=== PATIENT | female | born 1965 | race Caucasian/White ===

== ENCOUNTER 2025-06-08 07:31 | Outpatient (AMB) | payer BC, SELFPAY ==
--- OUTSIDE RECORDS SUMMARY | 2025-06-08 07:35 | XMS_ITS | Patient Health Record ---
Author Organization [facility] Address [address] [facility] [place] [address] Care Team Providers Care Engineering Manager Electronics Name Role Phone Bridger Trevino MD Primary Care Provider Unavail able Chris Gaurav Unavailable [phone] Reason For Referral No Information Medications Medication SIG (Take, Route, Frequency, Duration) Notes Start Date End Date Status Walking Boot/Pneumatic As directed Wear Daily; Duration: Until further notice 06/19/2017 Active Lupron Depot (1-Month) Active Neurontin 300 MG 1 capsule Orally Once a day at night; Duration: 30 day(s) 08/21/2017 Active medroxyPROGESTERone Acetate 104 MG/0.65ML Subcutaneous Not-Taking Ibuprofen 800 MG 1 tablet Orally Three times a day; Duration: 30 day(s) PRN 06/20/2014 Not-Taking Compression Stockings 20-30mm Hg as directed 09/05/2014 Not-Taking Work Note . 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 .; Duration: . 08/18/2014 Not-Taking Physical Therapy 3-4x per week for 3-4 weeks 08/18/2014 Not-Taking Social History Tobacco Use: Social History Observation Description Date Details (start date - stop date) Never Smoker NA - NA Tobacco Use/Smoking Question Answer Notes Are you a: nonsmoker Additional Findings: Tobacco Non-User Current no n-smoker Alcohol Screen Question Answer Notes Did you have a drink contain ing alcohol in the past year? Yes How often did you have a dri nk containing alcohol in the past year? Monthly or less (1 point) How many drinks did you have on a typical day when you were drinking in the past year? 1 or 2 drinks (0 point) How often did you have 6 or more drinks on one occasion in the past year? Never (0 point) Points 1 Interpretation Negative Tobacco use other than smoking: Question Answer Notes Are you an other tobacco user? 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) Active confirmed Problem Localized, primary osteoarthritis of the ankle and/or foot (369521679) Primary osteoarthritis of left foot (M19.072) Active confirmed Plan Of Treatment Pending Test Test Name Order Date MRI : Foot, left 08/06/2017 X ray : Foot, right 2V 06/02/2014 X ray : Foot, right 2V 07/21/2014 X ray : Foot, right 2V 08/04/2014 X ray : Foot, right 2V 08/18/2014 X ray : Foot, right 2V 09/05/2014 X ray : Foot, right 2V 10/10/2014 X ray : Foot, right 2V 02/09/2015 Tc99 3 phase Bone Scan 07/09/2017 X ray : Foot, left 3V 07/09/2017 76816, J0702- Neuroma/Injection 07/23/19 18 Insurance Providers Payer Name Payer Address Payer Phone Subscriber Number Group Number Insured Name Patient Relationship to Insured Coverage Start Date Coverage End Date [facility] [address] [place] [address] [id number] Susie Jacobs Self - patient is the insured Medical (General) History Medical History History ICD Code hallux valgus edema Lumbago Degenerative arthritis of cervical spine Neck pain Shoulder pain cervical facet pain Pain in Limb Surgical History Surgery Date(Month/Year) Bun/R 07/13/2014 Hospitalization History Reason Date(Month/Year) Bunion right foot 07/13/14
--- OUTSIDE RECORDS SUMMARY | 2025-06-08 07:36 | XMS_ITS ---
[facility] Care Team Organization Name Specialty Phone Email Start Date End Da te [facility] Bridger Trevino Primary Care 05/06/2022 02/15/2024
--- OUTSIDE RECORDS SUMMARY | 2025-06-08 07:36 | XMS_ITS | Clinical Summary ---
Author [facility] Address [address] [place] [phone] Phone Care Team Providers Care Set Staff Fitter Name Role Phone Carlos Trevino MD Primary Care Provider [phone] Allergies No known active allergies Medications linaCLOtide (Linzess) 290 mcg capsule Take 1 capsule (290 mcg total) by mouth 1 (one) time each day. 30 each 11 09/19/2024 6 Active polyethylene glycol (PEG) 17 gram/dose oral powder 17 g 1 (one) time each day. Active Active Problems Problem Noted Date Diagnosed Date Lung nodule 2022 Overview (07/20/2024): [facility] 09/18. CT---small ground glass opacities Right and left Apices. Repeat 6 mo. 03/21. Improved. Repeat 1 yr? Injury of tendon of right hand 01/02/2020 Liver lesion 05/05/2019 Overview (07/20/2024): Likely simple cyst, CT 05/17. US ordered for further eval Colonic mass 05/05/2019 Overview (07/20/2024): CT 05/17. Polypoid Soft tissue mass at ileocecal valve. DDx stool vs benign vs malignant. GI referral. 05/17 Colonoscopy normal. Repeat 10 yrs Edema 09/08/2013 Degenerative arthritis of cervical spine 010 Neck pain 11/14/2009 Encounters Date Type Department Care Team Description 05/11/2025 Telephone Adult Medicine [address] [phone] Shiraz Espino PA 05/09/2025 10:30 AM EST Office Visit Adult [address] [phone] Shiraz Espino PA Right upper quadrant abdominal pain (Primary Dx) 05/09/2025 Telephone Adult [address] [phone] Shiraz Espino PA 04/18/2025 Results Follow-Up [address] [phone] Sony Bolivar RN 04/13/2025 3:25 PM EDT - 04/13/2025 11:59 PM EDT Hospital Encounter Radiology Department - [address] [phone] Encounter for screening mammogram for breast cancer Discharge Disposition: Home or Self Care from Last 3 Months Immunizations Immunization Administration Dates Next Due Influenza Quadrivalent, 0.5m l, preservative free (Fluarix; FluLaval; Fluzone) ages 6mo and older (Afluria) 3yo and older 05/06/2022,04/04/2020 Influenza Quadrivalent, with preservative (Fluzone; Afluria) 6mo and older 04/24/2020 Influenza trivalent, MDCK, 0 .5mL, preservative free (Flucelvax) 6mo and older 02/27/2024 Influenza trivalent, with pr eservative (Fluzone; Afluria) 6mo and older 04/30/2021,04/04/2020 Tdap Tetanus diptheria acell ular pertussis (Boostrix; Adacel) 7yo and older 05/18/2017,12/30/2007 Surgical History Surgery Date Site/Laterality Comments OTHER SURGICAL HISTORY PROCEDURE: DENIES PREVIOUS SURGERY COLONOSCOPY 07/24/2017 PROCEDURE: HISTORICAL COLONOSCOPY; COMMENT: Negative screening examination. STEREOTACTIC CORE BIOPSY Right benign Medical History Medical History Date Comments Other syndromes affecting ce rvical region 11/14/2009 DX:Other syndromes affecting cervical region Hallux valgus 04/03/2014 DX:Hallux valgus Liver lesion 05/05/2019 DX:Liver lesion; COMMENT: Likely simple cyst, CT 05/17. US ordered for further eval Colonic mass 05/05/2019 DX:Colonic mass; COMMENT: CT 05/17. Polypoid Soft tissue mass at ileocecal valve. DDx stool vs benign vs malignant. GI referral. Family History Medical History Relation Name Comments Heart attack Brother Diabetes Father Breast cancer Mother age 72 Heart attack Paternal Grandfather Relation Name Status Comments Brother Father Mother age 72 Paternal Grandfather Social History Tobacco Use Types Packs/Day Years Used Date Smoking Tobacco: Never Smokeless Tobacco: Never Tobacco Cessation:Counseling Given: Not Answered Alcohol Use Standard Drinks/Week Comments Yes 0 (1 standard drink = 0.6 oz pur e alcohol) Interpersonal Safety Answer Date Record ed Physical Abuse Unrecognized value 12/26/2024 Verbal Abuse Unrecognized value 12/26/2024 Comments No Sex and Gender Information Value Date Recorded Sex Assigned at Female 09/16/2024 5:52 PM EDT Legal Sex Female 11:33 PM EST Gender Identity Female 09/16/2024 5:52 PM EDT Sexual Orientation Straight 09/16/2024 5: 52 PM EDT Obstetrics History Para Term AB IAB SAB Ectopic Multiple Livin g Live Births 2 2 2 2 Date Outcome GA Total Labor Labor/2nd/3rd Weight Sex Type Anes PTL Stephie A1 A5 Name Clin Term Term Last Filed Vital Signs Vital Sign Reading Time Taken Comments Blood Pressure 134/81 05/09/2025 10:37 AM EST Pulse 61 05/09/2025 10:37 AM EST Temperature 36.7 C (98 F) 05/09/2025 10:37 AM EST Respiratory Rate 16 12/26/2024 12:46 PM EDT Oxygen Saturation 99% 12/26/2024 12:46 PM EDT Inhaled Oxygen Concentration - - Weight 67.7 kg (149 lb 3.2 oz) 05/09/2025 10:37 AM EST Height 157.5 cm (5' 2 ) 05/09/2025 10:37 AM EST Body Mass Index 27.29 05/09/2025 10:37 AM EST Plan of Treatment Health Maintenance Due Date Last Done Comments Hepatitis B Vaccines (1 of 3 - 19+ 3-dose series) 1985 Cervical Cancer Screening: Pap Smear 04/01/2013 04/01/2010 Pneumococcal Vaccine: 50+ Years (1 of 1 - PCV) 2016 Zoster Vaccines (1 of 2) 2016 Social Influencers of Health Screening 06/07/2022 Depression Screening 06/29/2024 Breast Cancer Screening 04/13/2027 04/13/20 25, 03/28/2024, 03/28/2024, Additional history exists DTaP,Tdap,and Td Vaccines (3 - Td or Tdap) 05/18/2027 05/18/2017, 12/30/2007 Cholesterol Screening (Lipid Panel) 02/05/2028 02/04/2023 Colorectal Cancer Screening: Colonoscopy 05/16/2029 05/16/2019 RSV Immunization Adult Patients (1 - 1-dose 75+ series) 2041 HIV Screening Completed 09/03/2016 Hepatitis C Screening Completed 02/04/2023 COVID-19 Vaccine Completed 05/06/2025, , 05/02/2022, Additional history exists Influenza Vaccine Completed 05/06/2025, , 05/06/2022, Additional history exists HIB Vaccines Aged Out No longer eligi ble based on patient's age to complete this topic HPV Vaccines Aged Out No longer eligi ble based on patient's age to complete this topic Hepatitis A Vaccines Aged Out No long er eligible based on patient's age to complete this topic IPV Vaccines Aged Out No longer eligi ble based on patient's age to complete this topic MMR Vaccines Aged Out No longer eligi ble based on patient's age to complete this topic Meningococcal ACWY Vaccine Aged Out N o longer eligible based on patient's age to complete this topic Meningococcal B Vaccine Aged Out No l onger eligible based on patient's age to complete this topic RSV Immunization Patients Under 20 months Aged Out No longer eligible based on patient's age to complete this topic Varicella Vaccines Aged Out No longer eligible based on patient's age to complete this topic Procedures Procedure Name Priority Date/Time Associated Diagnosis Comments MG MAMMO DIGITAL SCREENING W REGINO BILAT Routine 04/13/2025 3:40 PM EDT Encounter for screening mammogram for breast cancer HEPATITIS C SCREENING Routine 02/04/2023 LIPID PANEL Routine 02/04/2023 COLONOSCOPY Routine 05/16/2019 HIV SCREENING Routine 09/03/2016 PAP SMEAR Routine 04/01/2010 from Last 3 Months or Most Recently Relevant to Health Maintenance Results * MG Mammo Digital Screening w Regino bilat (04/13/2025 3:40 PM EDT) Anatomical Region Laterality Modality Breast Bilateral Mammography 04/17/2025 8:07 AM EDT Impressions 04/17/2025 8:13 AM EDT Benign. BI-RADS CATEGORY: 2 - BENIGN RECOMMENDATION: Screening bilateral mammogram is recommended in 1 year. Mammo Location: [facility], [address] [place] [address], [id number], . -------- FINAL REPORT -------- Dictated By: Jemma Tom Dictated Date: 04/17/2025 08:07 ET Assigned Physician: Jemma Tom Reviewed and Electronically Signed By: Jemma Tom Signed Date: 04/17/2025 08:13 ET Workstation ID: [id number] Transcribed By: Self Edit Transcribed Date: 04/17/2025 08:07 ET Narrative 04/17/2025 8:13 AM EDT CLINICAL: 59 years old, Female, routine annual exam. History of benign stereotactic core biopsy x2 in the right breast on 04/15/2022 COMPARISON: Mammograms dating back to 03/08/2021 with most recent of 03/28/2024. TECHNIQUE: Bilateral MLO and CC views were obtained digitally with 3-D mammogram (digital breast tomosynthesis). Computer-aided detection was utilized in evaluation of this exam (CAD). FINDINGS: There is no evidence of suspicious mass or architectural distortion. No worrisome calcifications are evident. 2 biopsy markers in the outer right breast are again noted. There has been no significant change from prior exam(s). BREAST DENSITY: C - The breasts are heterogeneously dense which may obscure small masses. Procedure Note Jemma Tom MD - 04/17/2025 CLINICAL: 59 years old, Female, routine annual exam. History of benignstereotactic core biopsy x2 in the right breast on 04/15/2022 COMPARISON: Mammograms dating back to 03/08/2021 with most recent of03/28/2024. TECHNIQUE: Bilateral MLO and CC views were obtained digitally with 3-Dmammogram (digital breast tomosynthesis). Computer-aided detection wasutilized in evaluation of this exam (CAD). FINDINGS: There is no evidence of suspicious mass or architectural distortion. Noworrisome calcifications are evident. 2 biopsy markers in the outer rightbreast are again noted. There has been no significant change from priorexam(s). BREAST DENSITY: C - The breasts are heterogeneously dense which mayobscure small masses. IMPRESSION: Benign. BI-RADS CATEGORY: 2 - BENIGN RECOMMENDATION: Screening bilateral mammogram is recommended in 1 year. Mammo Location: [facility], [address] [place] [address], [address], . -------- FINAL REPORT -------- Dictated By: Jemma Tom Dictated Date: 04/17/2025 08:07 ET Assigned Physician: Jemma Tom Reviewed and Electronically Signed By: Jemma Tom Signed Date: 04/17/2025 08:13 ET Workstation ID: [id number] Transcribed By: Self Edit Transcribed Date: 04/17/2025 08:07 ET C Scott Trevino MD IMG BI PROCEDURES Final Result * Hepatitis C Screening (02/04/2023) Hepatitis C Screening abstracted Historical Provider [facility] Final Result * (ABNORMAL) Lipid panel (02/04/2023) [facility] LDL/HDL Ratio 3 0 - 4 Triglycerides 64 0 - 150 mg/dL Cholesterol 229(A) 0 - 200 mg/dL HDL 71 >=40 mg/dL LDL Cholesterol 146(A) 0 - 100 mg/dL Blood Venous blood specimen / Unknown [facility] Provider LAB BLOOD ORDERABLES Michelle l Result * Colonoscopy (05/16/2019) [facility] Colonoscopy abstracted, no interpretation Anatomical Region Laterality Modality Other [facility] Provider HEALTH MAINTENANCE Final Result * HIV Screening (09/03/2016) [facility] HIV Screening abstracted [facility] Provider HEALTH MAINTENANCE Final Result * Pap Smear (04/01/2010) [facility] Pap smear abstracted, no interpretation [facility] Provider HEALTH MAINTENANCE Final Result from Last 3 Months or Most Recently Relevant to Health Maintenance Insurance [facility] Care Teams Set Staff Fitter Relationship Specialty Start Date End Date Carlos Trevino MD [address] [place] [id number] PCP - General 10/21/1997
--- OUTSIDE RECORDS SUMMARY | 2025-06-08 07:36 | XMS_ITS | Encounter Summary ---
Author Organization [facility] [place] [address] Care Team Providers Care Development Associate Name Role Phone Carlos Trevino MD Primary Care Provider [phone] Encounter Details Date Type Department Care Team (Late st Contact Info) Description 04/18/2025 Results Follow-Up Adult [facility] [address] [place] [phone] Sony Bolivar RN Social History Tobacco Use Types Packs/Day Years Used Date Smoking Tobacco: Never Smokeless Tobacco: Never Alcohol Use Standard Drinks/Week Comments Yes 0 [...] Orientation Straight 09/16/2024 5: 52 PM EDT documented as of this encounter Plan of Treatment Not on file documented as of this encounter Visit Diagnoses Not on filedocumented in this encounter Care Teams Development Associate Relationship Specialty Start Date End Date Carlos Trevino MD [address] [place] [address] PCP - General 10/21/1997 documented as of this encounter
--- NOTE | 2025-06-08 07:48 | A.PHYSOV_ITS ---
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 right side rib pain and abdomen Supplier Quality Manager Required: No Allergies No Known Allergies Allergy (Verified 06/08/25 07:50) HPI Comments Details: History of Present Illness The patient is a 59 year old female presenting for reevaluation of persistent right-sided rib cage pain, which began over a year ago without any inciting injury. The pain is located on the right side, wraps around her ribs, and is rated as 8/10 in severity. 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 Due to the severe pain, her ability to exercise has diminished significantly; she is no longer able to lift weights or take long walks as she did a year ago. Her last visit was on March 14, 2025. Previous workup for the pain included an abdominal CT scan and MRI, both of which were noncontributory. A thoracic spine MRI performed on February 24, 2025, to investigate suspected thoracic radiculitis was also normal and showed no evidence of nerve root compromise. The patient's relevant medical history includes diagnoses of chronic constipation, for which she uses various laxatives including MiraLAX, and endometriosis. She notes the pain does not improve even after she has a bowel movement. Pain Description - Onset: The pain started over a year ago without any specific injury. - Location: Right-sided rib cage, wrapping around from her back. - Severity: The patient rates the pain as an 8 out of 10. - Exacerbating factors: The pain worsens with physical activity, sitting against a chair on the affected side, and taking deep breaths. - Interference with function: The pain has significantly diminished her ability to exercise, preventing her from lifting weights and taking long walks. 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 Results - Tests and Diagnostics: - Abdominal CT scan was noncontributory. - Abdominal MRI was noncontributory. - Thoracic spine MRI performed on February 24, 2025, was completely normal with no evidence of nerve root compromise. [facility] Medical History (Updated 06/08/25 @ 17:32 by Artie Garnett DO) Chronic pain syndrome Thoracic spine pain Surgical History Endometrial cyst of ovary Social History Alcohol intake: current Alcohol intake frequency: holidays/special occasions only Use of substances other than those prescribed or required for medical reasons: No Current occupational status: employed Review of Systems Narrative Review of Systems - Musculoskeletal: Reports chronic, severe (8/10) right-sided rib cage pain that wraps around from her back. - Respiratory: Reports pain with deep inspiration. - Gastrointestinal: Reports chronic constipation. - Constitutional: Denies any inciting injury or trauma. Physical Exam Exam Exam: Physical Exam Patient appears to be visibly upset, no acute distress, ambulates without antalgia. She was able to perform heel walk and toe walk. Neurological examination was nonfocal. She demonstrated no upper motor neuron signs. Pain exacerbation with thoracic rotation and extension. Vital Signs: BMI result Body Mass Index 26.2 Assessment & Plan Assessment & Plan (1) Thoracic spine pain: Code(s): M54.6 - Pain in thoracic spine Category: Medical (2) Pain in thoracic spine: Code(s): M54.6 - Pain in thoracic spine (3) Chronic pain syndrome: Code(s): G89.4 - Chronic pain syndrome Category: Medical Plan Pain Management - Affect: The patient expresses concern that if the pain continues, she will not be able to move well by age 66 or 71. - She feels she has lost muscle and strength because the pain prevents her from being active. - Analgesia: The patient is currently taking turmeric with black pepper. - Her current pain level is 8/10. - A trial of duloxetine was offered, but she declined at this time. - Adverse Effects: Not applicable, as she is not on prescription pain medications. - Activities of Daily Living: The pain has severely diminished her ability to ex ercise, and she can no longer lift weights or go for long walks. 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 - Aberrant Drug Related Behaviors: None discussed. Plan Patient was informed and verbally consented to the use of an ambient scribe for clinic note documentation during this visit. 1. Chronic Right Rib Pain The patient presents with chronic right rib and thoracic pain of unclear etiology, with a severity of 8/10, despite an extensive negative workup including a normal thoracic spine MRI, and abdominal CT and MRI scans. The subjective nature of the pain is acknowledged, and it is noted that procedural interventions such as epidural injections are not an option due to the lack of a clear anatomical target. A trial of duloxetine for chronic pain was discussed, as it is FDA-approved for chronic musculoskeletal pain, but the patient declined to start the medication at this time, expressing nervousness about its classification as an antid epressant. A referral will be placed to the anesthesia pain group at [facility] for consideration of more advanced interventional procedures, such as a dorsal column stimulator or a peripheral nerve stimulator (e.g., SPRINT), which may help alleviate her pain. The option of a neurology consult was also mentioned, though it was noted that it is unlikely to yield new diagnostic information. The patient will also consult with her primary care provider for further input. Discussion Notes I explained to the patient that the objective source of her chronic right-sided rib pain remains unclear, despite an extensive workup including a normal thoracic spine MRI and other imaging. I informed her that because there is no clear anatomical target, procedural options that I perform, such as epidural injections, are not indicated. We discussed two potential paths forward. First, I offered a trial of duloxetine, explaining its FDA approval for chronic pain and its mechanism of altering pain perception in the brain; however, the patient declined at this time due to concerns about it being an antidepressant. Second, I discussed a referral to the anesthesia pain group at [facility], who perform more advanced procedures like dorsal column or peripheral nerve stimulators (e.g., SPRINT), which could offer significant pain relief. The patient agreed to the referral and will also consult with her primary care provider. I will place the referral to the pain management group. Patient Instructions - Continue taking turmeric with black pepper for pain. - I will be sending a referral to the pain management specialists at [facility]. - Please expect them to contact you to schedule an appointment to discuss other treatment options. - It is also recommended that you speak with your primary care doctor about your ongoing pain to see if they have any other ideas. - If the primary care doctor has suggestions that require my help, please let me know. Orders: Referrals Pain Management Referral M54.6 - Pain in thoracic spine Coding Level of Care Code Est Pt Level 4 (28284) Add On Problem Visit Only Diagnoses Thoracic spine pain M54.6 Chronic pain syndrome G89.4
[2025-06-08 07:49] VITALS: BMI 26.2
== END 2025-06-08 08:06 | disposition home or self-care (01) ==
LOC: HO.HPHYS 07:31
PROVIDERS: PCP Pediatrics; Visit Provider Physical Medicine & Rehabilitation
DX: M54.6 Pain in thoracic spine (principal); G89.4 Chronic pain syndrome
CPT/HCPCS: 99214